=== PATIENT | female | born 1980 | race Caucasian/White ===

== ENCOUNTER → 2021-06-24 | Outpatient (CLI) | payer OTHER | LOC: GENOP 17:54 | DX: M25.551 Pain in right hip (principal) | CPT/HCPCS: 73502 ==

== ENCOUNTER 2021-07-17 11:49 | Emergency (ER) | payer OTHER ==
[2021-07-17 12:52] LABS: HEMOGLOBIN 13.9 gm/dl (12.3-15.3); RED BLOOD COUNT 4.56 M/UL (4.00-5.10); WHITE BLOOD COUNT 10.8 K/UL (4.5-11.0)
[2021-07-17 13:00] LABS: BUN/CREATININE RATIO 24 (0-10)
[2021-07-17] MEDS ORDERED: TORADOL 10 MG T10 MG PO (13:26)
== END 2021-07-17 13:38 | disposition home or self-care (01) ==
LOC: ER1 11:49
PROVIDERS: Physician Assistant
DX: M25.551 Pain in right hip (principal); Z90.89 Acquired absence of other organs; Z88.6 Allergy status to analgesic agent; Z88.8 Allergy status to other drugs, medicaments and biological substances; Z79.1 Long term (current) use of non-steroidal anti-inflammatories (NSAID); F17.200 Nicotine dependence, unspecified, uncomplicated
CPT/HCPCS: 73502; 80048; 85025; 85652; 86140; 96372; 99283; J1885

== ENCOUNTER 2021-07-23 22:35 | Emergency (ER) | payer OTHER ==
[~2021-07-23 22:35] MED LIST: TORADOL 10 MG T10 MG PO
[2021-07-23 23:43] LABS: HEMOGLOBIN 12.2 gm/dl (12.3-15.3); RED BLOOD COUNT 4.06 M/UL (4.00-5.10)
[2021-07-24 00:04] LABS: BUN/CREATININE RATIO 16 (0-10)
[2021-07-24] MEDS ORDERED: MACROBID 100 M100 MG PO (00:58)
[2021-07-27 04:07] LABS: CHLAMYDIA TRACHOMATIS, NAA Negative (Negative); NEISSERIA GONORRHOEAE, NAA Negative (Negative)
== END 2021-07-24 01:20 | disposition home or self-care (01) ==
LOC: ER1 22:35
PROVIDERS: Family Medicine
DX: N39.0 Urinary tract infection, site not specified (principal); B37.3 Candidiasis of vulva and vagina; I10 Essential (primary) hypertension; F17.200 Nicotine dependence, unspecified, uncomplicated; Z88.6 Allergy status to analgesic agent
CPT/HCPCS: 80053; 81001; 83605; 84439; 84443; 84703; 85025; 87210; 99283

== ENCOUNTER → 2021-09-01 | Outpatient (CLI) | payer OTHER ==
[~2021-09-01] MED LIST changes: +MACROBID 100 M100 MG PO
[2021-09-01 19:04] LABS: HEMOGLOBIN 14.1 gm/dl (12.3-15.3); RED BLOOD COUNT 4.85 M/UL (4.00-5.10); WHITE BLOOD COUNT 14.3 K/UL (4.5-11.0)
[2021-09-01 19:21] LABS: BUN/CREATININE RATIO 18 (0-10)
[2021-09-03 07:10] LABS: VITAMIN D, 25-HYDROXY 18.9 ng/mL (30.0-100.0)
[2021-09-03 08:14] LABS: THYROXINE (T4) 5.7 ug/dL (4.5-12.0)
== END ==
LOC: RAD 17:14
PROVIDERS: Nurse Practitioner
DX: J06.9 Acute upper respiratory infection, unspecified (principal); I10 Essential (primary) hypertension; E78.5 Hyperlipidemia, unspecified; E55.9 Vitamin D deficiency, unspecified; R53.83 Other fatigue
CPT/HCPCS: 71046; 80053; 80061; 84436; 84443; 84480; 85025

== ENCOUNTER 2022-07-12 21:08 | Emergency (ER) | payer OTHER ==
[2022-07-12 22:02] LABS: HEMOGLOBIN 13.7 gm/dl (12.3-15.3); RED BLOOD COUNT 4.51 M/UL (4.00-5.10); WHITE BLOOD COUNT 20.1 K/UL (4.5-11.0)
[2022-07-12 22:27] LABS: BUN/CREATININE RATIO 15 (0-10)
[2022-07-13] MEDS ORDERED: CEPHALEXIN500 MG PO (00:46)
[2022-07-13] MEDS ORDERED: OMNICEF 300 MG300 MG PO (17:25)
== END 2022-07-13 01:00 | disposition left against medical advice (07) ==
LOC: ER1 21:08
PROVIDERS: Physician Assistant
DX: R10.31 Right lower quadrant pain (principal); R10.32 Left lower quadrant pain; I10 Essential (primary) hypertension; F17.210 Nicotine dependence, cigarettes, uncomplicated; Z88.6 Allergy status to analgesic agent; Z88.8 Allergy status to other drugs, medicaments and biological substances
CPT/HCPCS: 80053; 81001; 82150; 83605; 83690; 84703; 85025; 87040; 87077; 87086; 87186; 93005; 96374; 96375; 99283; J0696; J2405; Q9967

== ENCOUNTER 2022-07-13 11:57 | Emergency (ER) | payer OTHER ==
[~2022-07-13 11:57] MED LIST changes: +CEPHALEXIN500 MG PO
[2022-07-13 13:19] LABS: RED BLOOD COUNT 4.34 M/UL (4.00-5.10)
[2022-07-13 13:48] LABS: BUN/CREATININE RATIO 12 (0-10)
[2022-07-13] MEDS ORDERED: OMNICEF 300 MG300 MG PO (17:25)
== END 2022-07-13 17:58 | disposition home or self-care (01) ==
LOC: ER1 11:57
PROVIDERS: Emergency Medicine
DX: J02.0 Streptococcal pharyngitis (principal); Z20.822 Contact with and (suspected) exposure to COVID-19
CPT/HCPCS: 71045; 80053; 81001; 83605; 83735; 84100; 85025; 87040; 87081; 87086; 87880; 96374; 96375; 99284; J0696; J1100; J1885; J2405; U0002